=== PATIENT | female | born 1990 | race Caucasian/White ===

== ENCOUNTER → 2023-09-11 09:51 | Outpatient (REF) | payer OTHER, SELFPAY | LOC: HWRCS 09:51 | PROVIDERS: ATTENDING PHYSICIAN Internal Medicine Cardiovascular Disease | DX: R07.89 Other chest pain (principal); Z86.79 Personal history of other diseases of the circulatory system; Z82.49 Family history of ischemic heart disease and other diseases of the circulatory system | CPT/HCPCS: 93306 ==

== ENCOUNTER 2023-12-28 15:20 | Inpatient (IN) | payer OTHER, SELFPAY ==
[2023-12-28] VITALS (9 sets, daily range): BP systolic 98–117; BP diastolic 61–81; BMI 27.4; BMI 28.8
[2023-12-28 11:29] LABS: Glucose - Point of Care 555 mg/dl (70-99)
--- NOTE | 2023-12-28 11:31 | ED.GENMED ---
History of Present Illness
General
Chief Complaint: Blood Sugar Problem
Source: patient
Exam Limitations: none
Time Seen by Provider: 12/28/23 11:31
Nursing documentation reviewed up to this point in time: agreed with
History of Present Illness
History of Present Illness:
This is a 33-year-old female with a history of type 1 diabetes, tobacco use disorder, PTSD, anxiety, bipolar disorder presenting to the emergency department today with concerns of blood sugar running high recently. Patient is manage on Dexcom
monitor and insulin pump. Patient states that a week ago, her continuous glucose monitor started beeping before it was time for change and it started malfunctioning. Patient states that she tried to get this refilled to get a new monitor but she
only gets a certain refills of her month and would not allow her to get a new one. Patient states that she is legally blind so she could not manage her sugars with fingerstick monitor but noticed that she started to have a lot of nausea and
vomiting and feeling in general foggy and yet her sugar was high. Denies any abdominal pain. She denies any fevers or chills, chest pain, shortness of breath. Patient also complains of left foot pain. Patient states that she has pretty bad
neuropathic pain in her feet with her diabetes and recently started to have swelling and increasing pain in her left foot is concerned she may have have broken metatarsal.
Past History
Past History
ED Past Medical History: IDDM, Psychiatric (Depression, anxiety, bipolar disorder, PTSD) and Other (Intestinal malrotation/Heterotaxy syndrome. Pancreatitis, Heroin OD, Ulcers Nephrotic kidneys,)
ED Past Surgical History: Gynecological, Orthopedic, Tonsilectomy (adnoids) and Other (hand surgery, tubes in ears, Ovarian cyst removed)
Social History
Tobacco: Smoker
Alcohol: Other (Reports no alcohol x 64 days)
Drug: IVDA
Personal: Single
Living: with family
Employment: Employed (home health aide)
Family History
Family History: Diabetes
Review of Systems
Review of Systems
All Other Systems: ROS reviewed and negative except as documented in HPI and ROS
Phy Exam
Physical Exam
Physical Exam:
General: Patient is well appearing and in no acute distress; non-toxic
Skin: Warm and dry, no rashes or lesions
Head: Normocephalic, atraumatic
Eyes: Sclera non-icteric. EOMs intact. PERRLA.
Cardiac: Regular rate and rhythm, no murmurs
Peripheral Vascular: No lower extremity swelling or edema. 2+ dorsalis pedis pulse bilaterally
Pulm: Normal respiratory effort
Abdomen: No abdominal tenderness
Musculoskeletal: Severe pain with light touch of bilateral feet. Swelling seen over the left first metatarsal. No obvious deformities.
Neuro: CN II-XII intact, no focal neurologic deficits.
Psychiatric: Appropriate mood and affect.
Course
Orders/Labs/Results
Orders:
Orders
12/28/23 11:44
Urinalysis Reflex To Culture Urgent
12/28/23 11:45
0.9% Sodium Chloride 1000 ml [Nss] 1,000 ml IV BOLUS
12/28/23 11:52
B-Hydroxybutyrate Urgent
Comment: ADD ON
Complete Blood Count/With Diff Urgent
Comprehensive Metabolic Panel Urgent
Magnesium Urgent
Comment: ADD ON
12/28/23 12:14
CR Foot - Left Min 3 Views Urgent
Reason For Exam: left foot swelling and pain
12/28/23 12:15
Add On- LAB Urgent
Tests Added?: B-hydroxybutyrate
12/28/23 12:20
Add On- LAB Urgent
Tests Added?: magnesium
12/28/23 13:28
Potassium Chloride [KCl] 20 meq PO NOW STA
12/28/23 13:42
Potassium Chloride [KCl] 20 meq PO NOW STA
12/28/23 13:53
Potassium Chloride [KCl] 40 meq 0.9% Sodium Chloride 250 ml [Nss] 250 ml IV NOW
12/28/23 14:10
Potassium Chloride 10% Elixir [KCl Elixir] 20 meq PO NOW STA
12/28/23 14:47
Admit/Transfer Patient As Directed
Co-Sign Provider:
Level of Care: Inpatient admission
Assign to:: Telemetry
Physician / Group: Clement
Diagnosis: Hyperglycemia; Hypokalemia
Reason for Telemetry: Arrhythmia
Date to Stop Telemetry: 12/31/23
Time to Stop Telemetry: 11:00
Reason for Hospitalization: IVFs, glucose control, potassium replacement
Expected length of stay greater than two midnights?: Yes
ELOS- Estimated Length of Stay in days: 3
I certify the patient meets the requirements for IP care: Yes
12/28/23 14:49
Code Status As Directed
Resuscitation Status: Full Code
12/28/23 15:00
Add On- LAB Routine
Comments:: Please add A1C to am labs. Thank you
Tests Added?: A1C
12/28/23 16:00
BMP [Basic Metabolic Panel] Urgent
12/31/23 11:00
DC Protocol for Telemetry ONCE
Abnormal Lab Results
12/28/23 12/28/23
11:27 11:52
RBC 3.94 L 10^6/uL
(4.20-5.40)
Hgb 11.4 L g/dL
(12.0-16.0)
Hct 31.4 L %
(37.0-47.0)
MCV 79.7 L fL
(81.0-99.0)
Plt Count 459 H 10^3/uL
(130-400)
Sodium 125 L mmol/L
(135-145)
Potassium 3.2 L mmol/L
(3.5-5.1)
Chloride 78 L mmol/L
(98-107)
Carbon Dioxide 34 H mmol/L
(22-30)
BUN 58 H mg/dl
(7-17)
Creatinine 1.6 H mg/dL
(0.6-1.0)
Glucose 563 H* mg/dl
(70-99)
Magnesium 2.8 H mg/dl
(1.6-2.3)
Alkaline Phosphatase 204 H U/L
(38-126)
POC Glucose 555 H* mg/dl
(70-99)
12/28/23 11:52
Vital Signs
Initial and Last Documented VS:
Initial Vital Signs
Temp Pulse Resp BP Pulse Ox
98.1 F 91 18 108/65 98
12/28/23 11:25 12/28/23 11:25 12/28/23 11:25 12/28/23 11:25 12/28/23 11:25
Last Documented Vital Signs
Temp Pulse Resp BP Pulse Ox
98.1 F 74 14 102/67 99
12/28/23 11:25 12/28/23 15:00 12/28/23 15:00 12/28/23 15:00 12/28/23 15:00
MDM/Problems Addressed
Differential Diagnosis Includes:
ddx include DKA, hyperglycemia, gastroenteritis, metatarsal fracture
MDM/Problems Addressed:
Hyperglycemia:
This is a 33-year-old female with a history of type 1 diabetes, tobacco use disorder, PTSD, anxiety, bipolar disorder presenting to the emergency department today with concerns of blood sugar running high recently. Patient is manage on DexIP Ghoster
monitor and insulin pump. Patient states that a week ago, her continuous glucose monitor started beeping before it was time for change and it started malfunctioning. She is unable to use a fingerstick monitor because she is legally blind. Her
sugar today is 555, however there is no evidence of acidosis or DKA. Her potassium is 3.2. Patient was given IV fluids. Because of her low potassium, IV potassium and oral potassium was started. Did not start insulin here in the ER because of
need for potassium,. Due to the fact that this patient does not have the ability to manage her blood sugars well, has significant uncontrolled diabetic neuropathy and ambulatory dysfunction, will admit for further management and care
Chronic conditions affecting care:
type 1 diabetes, migraines anxiety, depression, diabetic neuropathy
Acute Exacerbation and/or Progression of Chronic Illness:
type 1 diabetes, migraines anxiety, depression, diabetic neuropathy
*Pulse Oximetry
Patient hypoxic: no
*Critical Care Note
Total Time (30-74mins, 75-104mins- exclusive of procedures): Not Applicable
Data Reviewed
Review of Other/Old Records Reveals: Records and Discharge Summary (Reviewed discharge summary from 05/22/2023)
Source: patient and records
Patient Management
Escalation/DeEscalation of care consider admission/obs:
Admission indicated. I discussed this case with my attending Dr. Holcomb who is in agreement with plan.
ED Attending Note
-
Portions of this chart may have been created with voice recognition software.� Occasional wrong word or��sound alike� substitutions may have occurred due to the inherent limitations of voice recognition software.
Discharge Plan
Departure
Patient Disposition: Admit
Date of Disposition: 12/28/23
Time of Disposition: 13:55
Admit to: Med/Surg
Presentation/result/management discussed w/ accepting MD/DO: Hospitalist
Patient with high blood pressure during this ER visit?: Yes
Condition: Fair
Discharge Problem:
Hyperglycemia, Ambulatory dysfunction
Prescriptions:
No Action
losartan 100 mg Tablet
100 mg PO DAILY
Hold Instructions: Resume on 05/29/23. till seen by your PCP
rosuvastatin 20 mg Tablet
20 mg PO QPM
quetiapine 25 mg Tablet
25 mg PO HS
trazodone 50 mg Tablet
150 mg PO HS
metolazone 5 mg Tablet
5 mg PO TUTH
cyanocobalamin (vitamin B-12) 1,000 mcg Tablet
1,000 mcg PO DAILY
omeprazole 40 mg Capsule,Delayed Release(Dr/Ec)
40 mg PO BID
prednisolone acetate 1 % Drops,Suspension
1 drp RIGHT EYE DAILYPRN PRN (Reason: inflammation)
gabapentin 100 mg Capsule
100 mg PO TID
atropine 1 % Drops
2 drp RIGHT EYE DAILYPRN PRN (Reason: dryness)
insulin glargine [Lantus Solostar U-100 Insulin] 100 unit/mL (3 mL) Insulin Pen
9 unit SC TIDPRN PRN (Reason: diabetes)
Creon 36,000-114,000- 180,000 unit Capsule,Delayed Release(Dr/Ec)
1 cap PO AC
Blink Tears 0.25 % Drops
1 drp ophthalmic (eye) QID
Rx Instructions:
right eye
Patient's Own Insulin Pump
0 sliding scale dose SC .CONTINUOUS
Rx Instructions:
patient using insulin lispro
bumetanide 2 MG tablet
2 mg PO BID
Referrals:
Malvin Savage MD [Family Provider] -
Interventions
Interventions:
*Risk Screen - Suicide Last Done: 12/28/23 11:47
*General Assessment Last Done: 12/28/23 11:47
*Neglect/Abuse Screening Last Done: 12/28/23 11:47
ED- Fall Risk Assessment Last Done: 12/28/23 11:47
*ED COVID-19 Vaccine History Last Done: 12/28/23 11:25
ED- Neurological Assessment Last Done: 12/28/23 11:47
Discharge Date and Time
Print Language: PUERTO RICAN
[2023-12-28] MEDS: NSS 1000 IV (11:54)
--- NOTE | 2023-12-28 12:06 | PHANOTE ---
med rec gianna- patient states she picked up enoxaparin injection on 12/12/23, 21 doses, but has not used them.
[2023-12-28 12:09] LABS: % Basophils 1.1 % (0-2); % Eosinophils 3.7 % (0-6); % Immature Granulocytes 0.1 % (0-0.5); % Monocytes 6.8 % (1.7-9.3); % Neutrophils 59.3 % (42.2-75.2); Absolute Basophils 0.1 10^3/uL (0-0.2); Absolute Eosinophils 0.3 10^3/uL (0-0.7); Absolute Lymphocytes 2.2 10^3/uL (1.2-3.4); Absolute Monocytes 0.5 10^3/uL (0.1-0.6); Absolute Neutrophils 4.5 10^3/uL (1.4-6.5); Hematocrit 31.4 % (37.0-47.0); Hemoglobin 11.4 g/dL (12.0-16.0); Mean Corp Hgb Conc. 36.3 g/dL (33.0-37.0); Mean Corpuscular Hgb 28.9 pg (27.0-31.0); Mean Corpuscular Volume 79.7 fL (81.0-99.0); Mean Platelet Volume 10.4 fL (7.4-10.4); Nucleated Red Blood Cells % 0 %; Platelet Count 459 10^3/uL (130-400); Red Blood Cell Count 3.94 10^6/uL (4.20-5.40); Red Cell Dist. Width 12.9 % (11.5-14.5); White Blood Cell Count 7.5 10^3/uL (4.8-10.8)
[2023-12-28 12:18] LABS: ALT (SGPT) 25 U/L (0-35); AST (SGOT) 25 U/L (14-36); Albumin 4.3 g/dl (3.5-5.0); Alkaline Phosphatase 204 U/L (38-126); Blood Urea Nitrogen 58 mg/dl (7-17); Calcium 9.4 mg/dl (8.4-10.2); Carbon Dioxide 34 mmol/L (22-30); Chloride 78 mmol/L (98-107); Estimated Creatinine Clearance 46 ml/min; Glucose 563 mg/dl (70-99); Potassium 3.2 mmol/L (3.5-5.1); Sodium 125 mmol/L (135-145); Total Bilirubin 0.4 mg/dl (0.2-1.3); Total Protein 7.5 g/dl (6.3-8.2); eGFR 43.67
[2023-12-28 12:56] LABS: B-Hydroxybutyrate 0.25 mmol/L (0.02-0.27); Magnesium 2.8 mg/dl (1.6-2.3)
[2023-12-28] MEDS: KCL 20 MEQ PO ×2 (13:42→14:23)
--- NOTE | 2023-12-28 13:58 | HPS.HSE ---
Family Physician
-
Family Physician: Malvin Savage
Chief Complaint
-
Elevated Blood Sugars
History of Present Illness
This is a 33 year old female with past medical history of diabetes mellitus type 1, legal blindness, hypertension, and CKD presents to the emergency department with elevated blood sugar. The patient reports she has been having symptoms of fatigue,
nausea, and vomiting the past week as she has tried to control her glucose levels. She reports these are typical symptoms for her when her glucose is not controlled. The patient notes her glucose monitor is malfunctioning so it is not communicating
with her pump to release the insulin she needs to keep her glucose numbers down, prompting her to present to the emergency department today. She admits to using Lantus at home to try and compensate for the lack of insulin release from the pump
without relief of symptoms. She reports she monitors her blood sugar based on her symptoms since she is legally blind and cannot do fingerstick glucose monitoring. She reports she contacted her pharmacy to obtain another glucose monitor but was told
insurance will not cover another sensor at this time. She denies diarrhea, fever, chills, and sweats.
Medical History
Past Medical History
Past Medical History: Reports Other
Additional Past Medical History:
Diabetes Mellitus, Type I
Diabetic Neuropathy
CKD Stage III
Essential Hypertension
Hyperlipidemia
Anxiety / Depression / Bipolar Disorder / PTSD
Chronic Pancreatitis
Intestinal Malrotation
Past Surgical History: Reports Other
Additional Past Surgical History:
Tonsillectomy
Ovarian Cyst Removal
Right and Surgery
Left Foot Surgery
Right Retinal Reattachment
Social History
Tobacco: Smoker
Alcohol: Occasional
Drug: Former User
Living: With Family
Family History
Family History: Other (Hypertrophic Cardiomyopathy and Diabetes Mellitus)
Allergies / Home Medications
Allergies reflects when Allergies were last updated in [employer].
Home Medications with original date entered in [employer]
Allergy/Medication List:
Allergies
Allergy/AdvReac Type Severity Reaction Status Date / Time
No Known Allergies Allergy Verified 12/28/23 11:28
Home Medications
losartan 100 mg tablet 100 mg PO DAILY Blood Pressure 05/21/23
rosuvastatin 20 mg tablet 20 mg PO QPM High Cholesterol 05/21/23
Patient's Own Insulin Pump 0 sliding scale dose SC .CONTINUOUS 12/28/23
atropine 1 % eye drops 2 drp RIGHT EYE DAILYPRN PRN dryness 12/28/23
bumetanide 2 mg tablet 2 mg PO BID Fluid retention/Swelling 12/28/23
cyanocobalamin (vitamin B-12) 1,000 mcg tablet 1,000 mcg PO DAILY 12/28/23
gabapentin 100 mg capsule 100 mg PO TID 12/28/23
insulin glargine 100 unit/mL (3 mL) subcutaneous pen (Lantus Solostar U-100 Insulin) 9 unit SC TIDPRN PRN diabetes 12/28/23
[id number]-bkqjcfu 36,000-114,000-180,000 unit capsule,delay rel (Creon) 1 cap PO AC 12/28/23
metolazone 5 mg tablet 5 mg PO TUTH 12/28/23
omeprazole 40 mg capsule,delayed release 40 mg PO BID 12/28/23
polyethylene glycol 400 0.25 % eye drops (Blink Tears) 1 drp ophthalmic (eye) QID 12/28/23
prednisolone acetate 1 % eye drops,suspension 1 drp RIGHT EYE DAILYPRN PRN inflammation 12/28/23
quetiapine 25 mg tablet 25 mg PO HS 12/28/23
trazodone 50 mg tablet 150 mg PO HS 12/28/23
Review of Systems
-
A 12 point ROS was completed and negative except as noted: Yes
Constitutional: Denies Fever or Chills
Respiratory: Denies Cough or Trouble Breathing
Cardiac: Denies Chest Pain or Palpitations
Abdomen/GI: Reports Abdominal Pain
Physical Exam
Vital Signs
Vital Signs
Temp Pulse Resp BP Pulse Ox
98.1 F 75 11 101/77 97
12/28/23 11:25 12/28/23 13:15 12/28/23 13:15 12/28/23 13:00 12/28/23 13:15
Physical Exam
General: Comfortable and Conversant
HEENT: Anicteric and Moist mucous membranes
Respiratory: Clear and Non Labored Respirations
Cardiac: S1/S2 and Regular Rhythm
GI: Soft and Non Tender
Rectal: Deferred by Provider
Skin: Warm and Dry
Neuro: Awake, Alert, Oriented and Nonfocal/grossly intact
Laboratory Results
-
12/28/23 11:52
12/28/23 11:52
Laboratory Results
Total Bilirubin 0.4 mg/dl (0.2-1.3) 12/28/23 11:52
AST 25 U/L (14-36) 12/28/23 11:52
ALT 25 U/L (0-35) 12/28/23 11:52
Alkaline Phosphatase 204 U/L (38-126) H 12/28/23 11:52
Data Reviewed
-
Lab Data: Labs Reviewed by me
Impression/Plan
-
Hyperglycemia secondary to malfunctioning continuous glucose monitoring
-Consult Degreasing Solution Reclaimer for insulin recommendation
-Check HbgA1c
Hypokalemia
-Continue potassium replacement
-Hold diuretics
-Recheck BMP later this afternoon
Hyponatremia, mild
-Corrected sodium 132
-Recheck labs in AM
Recent Bilateral Toe Fractures
-Await official report on foot x-ray
-Continue use of walking boots
-Consult PT/OT
-Follow-up with podiatry/surgery as outpatient
CKD Stage III
-Creatinine at baseline
-Diuretics currently on hold
-Monitor Is&Os and Daily Weigths
Essential Hypertension
-Continue losartan
Hyperlipidemia
-Continue rosuvastatin
Peripheral Neuropathy
-Continue gabapentin
Chronic Pancreatitis
-Continue Creon
Anxiety/Depression/Bipolar/PTSD
-Continue Seroquel and trazodone
DVT proph: SC Heparin
Code Status: Full Code
[2023-12-28] MEDS: KCL 270 MEQ IV (14:24)
--- NOTE | 2023-12-28 14:56 | PN.DE.MGMTRT ---
Insulin Management
- -
12/28/2023: Diabetes Management Consult
33 year old female admitted with Hyperglycemia. Glucose on admission was 563, Pt reports having sx of fatigue, N/V. PMH:- Anxiety, Bipolar, legally blind, HTN, CKD, Substance abuse disorder, Gastroparesis and T1DM. Pt is well know to me from prior
admissions for DKA.
Pt reports that she was transitioned to insulin pump from insulin injections in Aug 2023 and has been doing well until about a week a go when her CGM sensor started malfunctioning and not communicating with her Omni Pod insulin pump, therefore not
getting the appropriate dose of insulin. She tried using Lantus at onset of her sx but had no improvement. States she contacted her pharmacy to obtain another Sensor but was told that it was too soon to refill. She continues to report that she is
legally blind in the right eye due to a detached retina as a result of severe proliferative retinopathy
Pt sleeping but easily awakens to name call, offers no complaints and is able to discuss diabetes mgt.
States that she does not know the exact details of her insulin pump settings but recalls that her insulin requirements prior to getting on the insulin pump were NovoLog 6 units AC with 22 units Lantus @ HS. She routinely sees [facility] at [facility].
Last A1C on 05/20/23 was 10.4%
Glucose on admission was 563 (V), Na+125, Bicarb 34, Cl-74, K+ 3.2--> replacement with IVF. Repeat BMP pending at 1600
Will start Lantus 20 units @ HS and NovoLog 6 units AC with low corrective insulin as well as 1800 ADA diet. Will update A1C - have added to AM labs.
I spoke to Ani and instructed her to call Dexcom and request for sensor. attempted o call her Endo's office and was unsuccessful, will make another attempt tomorrow. Also encouraged Ani to use voice command on her Iphone to call Dexcom
customer service since she is legally blind, when in need of troubleshooting her CGM.
Pt will temporarily require insulin injections via pen for management as she awaits for new sensor.
Diabetes History
- -
Type of Diabetes: 1
Pre-Admission Diabetes Regimen
12/28/23
11:52
Creatinine 1.6 H
Insulin Pump Settings
IP Diabetes Regimen
12/28/23 12/28/23
11:27 11:52
Glucose 563 H*
POC Glucose 555 H*
Patient Education
--- NOTE | 2023-12-28 15:40 | CON.ORTHO ---
Addendum entered and electronically signed by Lindsey Khan PA-C 12/29/23 17:21:
Patient with extensive fractures in her right midfoot as well including fracture of the base of her 2nd-4th metatarsals. Her hgb A1c is 11.5. She will likely require eventual surgical intervention for both of her feet, but this will not happen until
her diabetes is under better control. Still plan for outpatient follow up to discuss surgical intervention further. Continue with immobilization in bilateral CAM boots when ambulating. Given bilateral foot fractures, and need for immobilization,
this will make ambulating difficulty. She may bear weight as tolerated to both feet, but must utilize her CAM boots. She may wear these at rest for comfort as well.
Original Note:
Consultation
-
Date/Time Consultation Requested: 12/28/2023; time unknown
Date/Time Consultation Performed: 12/28/2023; 1530
Requesting Provider: Lina Baltazar
Performing Provider: Lindsey Khan PA-C for Dr. Gerardo Aquino
Reason for Consultation: Left foot pain
Consultation - Orthopedics
History
Ms. Montes is a 33 year old female with PMH significant for diabetes mellitus type 1 with bilateral diabetic neuropathy, legal blindness, hypertension, and CKD seen today for her left foot. She reports about 2-3 weeks ago her legs started to 'give
out on her' She is not able to report any falls or other specific injuries. She was seen initially at [facility] where x-rays were performed of both of her feet. She reports they told her she had seven fractured bones in her feet. She was
placed in bilateral tall CAM boots and instructed to follow up outpatient. She reports she has been weight bearing in her CAM boots, but felt a new 'crunch' recently, and experienced increased pain in her foot. She presented to today due to
elevated blood sugars. She does not recall what her last hemoglobin A1c was.
Allergies / Home Medications
Allergy/AdvReac Type Severity Reaction Status Date / Time
No Known Allergies Allergy Verified 12/28/23 11:28
�Medication �Instructions �Recorded
losartan 100 mg tablet 100 mg PO DAILY Blood Pressure 05/21/23
rosuvastatin 20 mg tablet 20 mg PO QPM High Cholesterol 05/21/23
Patient's Own Insulin Pump 0 sliding scale dose SC .CONTINUOUS 12/28/23
atropine 1 % eye drops 2 drp RIGHT EYE DAILYPRN PRN 12/28/23
dryness
bumetanide 2 mg tablet 2 mg PO BID Fluid 12/28/23
retention/Swelling
cyanocobalamin (vitamin B-12) 1,000 mcg PO DAILY 12/28/23
1,000 mcg tablet
gabapentin 100 mg capsule 100 mg PO TID 12/28/23
insulin glargine 100 unit/mL (3 9 unit SC TIDPRN PRN diabetes 12/28/23
mL) subcutaneous pen (Lantus
Solostar U-100 Insulin)
cfhvph-eahmsaxr-kgiurtv 1 cap PO AC 12/28/23
36,000-114,000-180,000 unit
capsule,delay rel (Creon)
metolazone 5 mg tablet 5 mg PO TUTH 12/28/23
omeprazole 40 mg capsule,delayed 40 mg PO BID 12/28/23
release
polyethylene glycol 400 0.25 % eye 1 drp ophthalmic (eye) QID 12/28/23
drops (Blink Tears)
prednisolone acetate 1 % eye 1 drp RIGHT EYE DAILYPRN PRN 12/28/23
drops,suspension inflammation
quetiapine 25 mg tablet 25 mg PO HS 12/28/23
trazodone 50 mg tablet 150 mg PO HS 12/28/23
Vital Signs / Lab Results
Temp Pulse Resp BP Pulse Ox
98.1 F 74 14 102/67 99
12/28/23 11:25 12/28/23 15:00 12/28/23 15:00 12/28/23 15:00 12/28/23 15:00
12/28/23 11:52
XR Left Foot IMPRESSION:
Fractures of the base of the left first, second, third and fourth metatarsals, as noted above.
Directed exam of the left foot reveals mild generalized edema throughout the foot. No erythema, ecchymosis or lesions. Tenderness to palpation over the base of the first-fourth metatarsals. Patient able to wiggle toes. Sensitivity to light touch
generally throughout the foot. Palpable pt and dp pulses.
Assessment / Plan
Fractures of left first through fourth metatarsals
--Ani's x-rays were reviewed with her today which reveal fractures of her first through fourth metatarsals. We discussed that this will require a midfoot fusion at some point in the future. The operation does not need to be performed emergently,
and will be determined by her blood sugar control. Hemoglobin A1c was ordered for tomorrow AM. Patient counseled on strict blood glucose control. At this point, I would recommend continued immobilization in her CAM boot. She should be non-weight
bearing to her left lower extremity. She may follow up on an outpatient basis to discuss surgical intervention further. Orthopedics will continue to follow along while patient admitted.
Right foot pain/reports h/o recent fracture
--XR right foot ordered to assess for fractures.
--- NOTE | 2023-12-28 15:47 | W.PN.UPDATE ---
Update Note
Progress Note Update
This note serves as an addendum to the H&P by Felisa Banda PA-C, on December 28, 2023.
History of Presenting Illness
33 year old female with past medical history of diabetes mellitus type 1, legal blindness, hypertension, and CKD presented to the emergency department with elevated blood sugars. The patient reports she vomited in the past 24 hours due to
hyperglycemia. She reports these are typical symptoms for her when her glucose is not controlled. The patient notes her glucose monitor is malfunctioning so it is not communicating with her pump to release the insulin she needs to keep her glucose
numbers down, prompting her to present to the emergency department today. She admitted to using Lantus at home to try and compensate for the lack of insulin release from the pump without relief of symptoms. She reports she monitors her blood sugar
based on her symptoms since she is legally blind and cannot do fingerstick glucose monitoring. She reports she contacted her pharmacy to obtain another glucose monitor but was told insurance will not cover another sensor at this time. She denied
diarrhea, fever, chills, or confusion.
Physical Exam
General: Comfortable and Conversant
HEENT: Anicteric and Moist mucous membranes
Respiratory: Clear and Non Labored Respirations
Cardiac: S1/S2 and Regular Rhythm
GI: Soft and Non Tender. Positive bowel sounds.
Skin: Warm and Dry
Neuro: Awake, Alert, Oriented and Nonfocal/grossly intact
Assessment/Plan
Hyperglycemia secondary to malfunctioning continuous glucose monitoring
-Not in DKA or HHS
-Insulin Sliding Scale ACHS
-IV fluids with potassium
-Consulted Inspecting Engineer for insulin recommendation, they will see patient today
-Check HbgA1c
Hypokalemia
-Continue potassium replacement
-Hold diuretics
-Recheck BMP later this afternoon
Hyponatremia, mild
-Corrected sodium 132
-Recheck labs in AM/this afternoon
Recent Bilateral Toe Fractures
-Was in [facility] for 2 weeks recently -- much of time was there waiting for the boots and insurance approval
-Await official report on foot x-ray
-Continue use of walking boots
-Consult PT/OT
-Follow-up with podiatry/surgery as outpatient
CKD Stage III
-Creatinine at baseline
-Diuretics currently on hold
-Monitor Is&Os and Daily Weigths
Essential Hypertension
-Continue losartan
Hyperlipidemia
-Continue rosuvastatin
Peripheral Neuropathy
-Continue gabapentin
Chronic Pancreatitis
-Continue Creon
Anxiety/Depression/Bipolar/PTSD
-Continue Seroquel and trazodone
DVT proph: SC Heparin
Code Status: Full Code
[2023-12-28 16:22] LABS: Glucose - Point of Care 380 mg/dl (70-99)
[2023-12-28 16:51] LABS: Blood Urea Nitrogen 55 mg/dl (7-17); Carbon Dioxide 31 mmol/L (22-30); Chloride 86 mmol/L (98-107); Estimated Creatinine Clearance 56 ml/min; Glucose 346 mg/dl (70-99); Potassium 3.7 mmol/L (3.5-5.1); Sodium 128 mmol/L (135-145); eGFR 56.03
[2023-12-28] MEDS: ZENPEP DELAYED RELEASE CAPSULE 1 CAPSULE PO (17:26)
[2023-12-28] MEDS: CRESTOR 20 MG PO (17:26)
[2023-12-28] MEDS: NOVOLOG FLEXPEN 6 UNITS SC (17:27)
[2023-12-28] MEDS: NEURONTIN 100 MG PO ×2 (17:27→21:01)
[2023-12-28] MEDS: NOVOLOG FLEXPEN-MODERATE RESISTANCE 9 UNITS SC (17:28)
--- NOTE | 2023-12-28 19:17 | PTCARENOTE ---
Received pt from ED.Pt awake, alert and oriented x3. Pt c/o discomfort in B/L feet, tolerable at this time. Pt is ordered NWB per MD, based on xray results. Pt does have boots that were given to her at [facility]. She is refusing to use bed
deleon or BSC. Pt is insisting on walking to the bathroom and refusing her boots. Pt instructed on reasoning for NWB and probability that her fractures could get worse, increased pain, slow healing, pt verbalized understanding, still refusing, Md
aware. Also in doing suicide risk assessment pt has attempted suicide in the last month. Pt has no active plan at this time. Spoke with MD, 1:1 initiated for overnight, Psych will see pt in am and determine continued need for 1:1. Initially pt
refusing 1:1 but after taking time and discussing plan of care, pt agreeable. Pt unhappy with Diabetic Diet, refusing to eat. Spoke with Dietary pt able to order meal she wanted with minor adjustments, Insulin coverage given for blood sugar of 380
per orders. Pt oriented to room, instructed to ring for assistance to bathroom, verbalized understanding and compliant this shift. Pt call osullivan within reach, plan of care ongoing.
--- NOTE | 2023-12-28 19:50 | PTCARENOTE ---
Addendum entered by Janelle Valle RN 12/28/23 20:15:
'Pt call osullivan within reach', no bed alarm in place pt has been ringing appropriately to use bathroom.
Original Note:
Went into see patient she is now adamantly refusing 1:1, saying ' i will walk out' Pt is insistent she has no plan or thoughts of suicide at this time. Psych and Hospitalist made aware along with house provider. Pt bed alarm in place. Plan of care
continues.
[2023-12-28] MEDS: PROTONIX 40 MG PO (20:13)
[2023-12-28] MEDS: SEROQUEL 25 MG PO (20:22)
[2023-12-28] MEDS: DESYREL 150 MG PO (20:31)
[2023-12-28 20:55] LABS: Glucose - Point of Care 160 mg/dl (70-99)
[2023-12-28] MEDS: LANTUS 0.200000000000000011 UNITS SC (21:01)
--- NOTE | 2023-12-28 21:23 | PTCARENOTE ---
Patient due for Urine Sample. PCT obtained sample, patient made staff aware she just started her period. RN called lab, lab said we can still send the sample down. BUTTON TUFTING MACHINE OPERATOR aware.
[2023-12-28 22:04] LABS: Urine Albumin 2+ (Neg - Trace); Urine Bilirubin Negative (Negative); Urine Character Clear (Clear); Urine Color Yellow; Urine Glucose 3+ (Negative); Urine Ketone Negative (Negative); Urine Leukocyte Trace (Negative); Urine Nitrite Negative (Negative); Urine Occult Blood 4+ (Negative); Urine Urobilinogen Negative (Neg - 1+)
[2023-12-28 22:11] LABS: Urine Squamous Cell >30 /LPF (Few)
[2023-12-28 22:15] LABS: Urine Bacteria Many (Negative); Urine Red Blood Cell 0-2 /HPF (0-2); Urine White Cell 16-20 /HPF (0-5)
--- NOTE | 2023-12-28 22:40 | PTCARENOTE ---
Patient asked staff if we could close the door for privacy because she doesn't feel safe and cannot sleep with the noises outside the room. Pt given options to either close the door with a med sitter or leave the door open due to safety issues. LOAN AND CREDIT MANAGER
Ana Rosa Michael aware. LOAN AND CREDIT MANAGER came to the floor to speak with the patient. RN and LOAN AND CREDIT MANAGER spoke with patient about her options because safety is the priority. Pt very upset stating she has no suicidal ideations and will call if she needs help. Took her heart
monitor off and wrist band. Stated all she wants to do is sleep and she will use call osullivan if she needs to use the bathroom. She will keep the light on during the night. Stated that she is in the hospital because she wants to seek help for her
health. Patient wants to be 'treated like a human being' and feels as if she is being 'degraded'. Patient stated she does not have a ride home if she were to leave AMA. LOAN AND CREDIT MANAGER decided to allow the patient close the door. AAOx3. Heart monitor and wrist
band reapplied. Room light on. Call osullivan is within reach.
[2023-12-29 03:14] VITALS: BP 101/61
[2023-12-29 05:55] LABS: Hematocrit 30.5 % (37.0-47.0); Hemoglobin 10.4 g/dL (12.0-16.0); Mean Corp Hgb Conc. 34.1 g/dL (33.0-37.0); Mean Corpuscular Hgb 28.7 pg (27.0-31.0); Mean Corpuscular Volume 84.3 fL (81.0-99.0); Mean Platelet Volume 10.5 fL (7.4-10.4); Platelet Count 408 10^3/uL (130-400); Red Blood Cell Count 3.62 10^6/uL (4.20-5.40); Red Cell Dist. Width 13.1 % (11.5-14.5); White Blood Cell Count 8.6 10^3/uL (4.8-10.8)
[2023-12-29 06:12] LABS: Blood Urea Nitrogen 51 mg/dl (7-17); Calcium 9.1 mg/dl (8.4-10.2); Carbon Dioxide 31 mmol/L (22-30); Chloride 93 mmol/L (98-107); Estimated Creatinine Clearance 53 ml/min; Glucose 171 mg/dl (70-99); Potassium 3.2 mmol/L (3.5-5.1); Sodium 135 mmol/L (135-145); eGFR 51.26
[2023-12-29 07:07] LABS: Glucose - Point of Care 192 mg/dl (70-99)
[2023-12-29 07:15] VITALS: BP 101/60
--- NOTE | 2023-12-29 08:19 | PN.DE.MGMTRT ---
Insulin Management
- -
12/29/2023: Diabetes Management F/U:
33 year old female admitted with Hyperglycemia. Glucose on admission was 563, Pt reports having sx of fatigue, N/V. PMH:- Anxiety, Bipolar, legally blind, HTN, CKD, Substance abuse disorder, Gastroparesis and T1DM. Pt is well know to me from prior
admissions for DKA.
Pt reports that she was transitioned to insulin pump from insulin injections in Aug 2023 and has been doing well until about a week a go when her CGM sensor started malfunctioning and not communicating with her Omni Pod insulin pump, therefore not
getting the appropriate dose of insulin. She tried using Lantus at onset of her sx but had no improvement. States she contacted her pharmacy to obtain another Sensor but was told that it was too soon to refill. She continues to report that she is
legally blind in the right eye due to a detached retina as a result of severe proliferative retinopathy.
States that she does not know the exact details of her insulin pump settings but recalls that her insulin requirements prior to getting on the insulin pump were NovoLog 6 units AC with 22 units Lantus @ HS. She routinely sees Endo Dr. River at [facility].
Last A1C on 05/20/23 was 10.4%
Pt awake, alert, oriented, sitting up in bed, offers no complaints and is able to discuss diabetes mgt.
Glucose on admission was 563 (V), was started on SQ insulin. A1C still pending. Cr 1.4, eGFR 51.26
Glucose has improved, pre-dinner sugar was 380, down to 160 HS and fasting 171(V), 192 POC this AM.
Will increase Lantus to 22 units @ HS and NovoLog to 8 units AC with low corrective insulin as well as 1800 ADA diet.
Pt was instructed to call [email or web address] and request for sensor. Pt will temporarily use insulin injections via pen for management while she awaits for a new sensor.
States she is able to use insulin pens but has difficulty with glucose monitoring and that her boyfriend helps her to check it most of the time.
Pt can be discharged home on insulin injections, she is comfortable with self administration of insulin using pens and has a glucose monitor with supplies at home
Diabetes plan of care discussed with pt and Nurse
Diabetes History
- -
Type of Diabetes: 1
Pre-Admission Diabetes Regimen
12/28/23 12/28/23 12/29/23
11:52 16:23 05:29
Creatinine 1.6 H 1.3 H 1.4 H
Insulin Pump Settings
IP Diabetes Regimen
12/28/23 12/28/23 12/28/23
11:27 11:52 16:20
Glucose 563 H*
POC Glucose 555 H* 380 H
12/28/23 12/28/23 12/29/23
16:23 20:53 05:29
Glucose 346 H 171 H
POC Glucose 160 H
12/29/23
07:06
Glucose
POC Glucose 192 H
Meal type: Dinner
Amount consumed: 100%
Patient Education
[2023-12-29] MEDS: NOVOLOG FLEXPEN SC (09:01)
[2023-12-29] MEDS: LANTUS SC (09:01)
[2023-12-29] MEDS: PROTONIX 40 MG PO ×2 (09:02→20:55)
[2023-12-29] MEDS: NEURONTIN 100 MG PO ×3 (09:03→20:56)
[2023-12-29] MEDS: ZENPEP DELAYED RELEASE CAPSULE 1 CAPSULE PO ×3 (09:03→16:38)
[2023-12-29] MEDS: KCL 40 MEQ PO (09:09)
[2023-12-29] MEDS: NSS 1000 IV ×2 (09:10→21:05)
[2023-12-29] MEDS: NOVOLOG FLEXPEN 8 UNITS SC ×4 (09:11→21:42)
[2023-12-29] MEDS: NOVOLOG FLEXPEN-MODERATE RESISTANCE 1 UNITS SC (09:12)
[2023-12-29] MEDS: LANTUS 0.220000000000000001 UNITS SC ×2 (09:39→20:57)
[2023-12-29 10:07] LABS: Glycohemoglobin (HgbA1c) 11.5 % (4.0-5.6)
[2023-12-29 11:10] VITALS: BP 99/68
[2023-12-29 11:17] LABS: Glucose - Point of Care 205 mg/dl (70-99)
[2023-12-29] MEDS: NICODERM TRANSDERMAL 21 MG TRANSDERM (11:56)
[2023-12-29] MEDS: NOVOLOG FLEXPEN-MODERATE RESISTANCE 3 UNITS SC ×2 (11:57→16:39)
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
[2023-12-29] MEDS: MIRALAX 17 GRAMS PO (14:40)
[2023-12-29] MEDS: TYLENOL 650 MG PO (15:08)
[2023-12-29 15:18] VITALS: BP 116/77
[2023-12-29 16:40] LABS: Glucose - Point of Care 229 mg/dl (70-99)
--- NOTE | 2023-12-29 17:00 | CM ---
Addendum entered by Radha Rodriguez 12/29/23 17:21:
Physical therapy are recommending skilled placement options reviewed with patient and patient is agreeable to [facility] and [facility], patient will be less than 30 day admission.
Original Note:
marketing strategy manager reviewed patient's chart and patient is followed by ACT program, Ana ridley [phone] and Pete [phone] patient is independent with adl's and ambulation, patient resides at [facility], and plan will be to return to
[facility] when stable.
Per Xenia they can transport patient Monday-Monday
Please fax clinical to ACT FAX [phone]
Pharmacy [facility]
PCP: Dr. Savage
--- NOTE | 2023-12-29 17:10 | W.PN.HOSP.TC ---
Today's Communication/Plan
-
Potassium replacement
Appreciate psychiatry, orthopedics, and Diabetes EMT I/99
Assessment / Plan
Assessment / Plan
Physical Exam
General: Comfortable and Conversant
HEENT: Anicteric and Moist mucous membranes
Respiratory: Clear and Non Labored Respirations
Cardiac: S1/S2 and Regular Rhythm
GI: Soft and Non Tender. Positive bowel sounds.
Skin: Warm and Dry
Neuro: Awake, Alert, Oriented and Nonfocal/grossly intact
Assessment/Plan
Hyperglycemia secondary to malfunctioning continuous glucose monitoring - IMPROVED
-Not in DKA or HHS
-IV fluids
-Consulted Photo Engraver for insulin recommendation: Lantus to 22 units @ HS and NovoLog to 8 units AC with low corrective insulin as well as 1800 ADA diet.
-Will need to prescribe insulin injections on discharge, she has glucose monitor and supplies at home
-Check HbgA1c
Hypokalemia
-Continue potassium replacement
-Hold diuretics
-Recheck BMP in the AM
Hyponatremia - secondary to hyperglycemia
-Recheck morning labwork
Recent Bilateral Toe Fractures
-Was in [facility] for 2 weeks recently -- much of time was there waiting for the boots and insurance approval
-Official report on foot x-ray: Left Foot - Fractures of the base of the left first, second, third and fourth metatarsals; Right Foot - There are acute comminuted nondisplaced fractures of the proximal metaphyses of the third and fourth metatarsals,
fracture of the base of the second metatarsal and associated oblique fracture of the distal lateral aspect of the medial cuneiform with associated intra-articular extension at the tarsal metatarsal joints of the first and second digits.
-Continue use of walking boots, continue NWB to bilateral lower extremities
-Consult PT/OT
-Follow-up with podiatry/surgery as outpatient
CKD Stage 4
-Patient confirmed that she has CKD stage 4 from Diabetes Mellitus
-Creatinine at baseline
-Diuretics currently on hold
-Monitor Is&Os and Daily Weigths
Essential Hypertension
-Continue losartan
Hyperlipidemia
-Continue rosuvastatin
Peripheral Neuropathy
-Continue gabapentin
Diabetic Gastroparesis
Severe retinopathy with visual impairment
Chronic Pancreatitis
History of Calcific Pancreatitis
-Continue Creon
Anxiety/Depression/Bipolar/PTSD
Recent Suicide Attempt
Numerous Psychiatric Admissions
Opiate Use Disorder
-Continue Seroquel and trazodone
-Psychiatry consulted, recommendations appreciated
-No changes in current psychiatric medications
DVT proph: SC Heparin
Code Status: Full Code
Anticipated Discharge: 24 - 48 hours
Subjective/Interval History
-
Date of Service: December 29, 2023
Patient was seen and examined. She reported feeling better than yesterday. She denied any new significant symptoms.
Objective Data
-
Labs:
Laboratory Results
12/29/23 12/29/23
05:29 17:05
WBC 8.6
Hgb 10.4 L
Hct 30.5 L
Plt Count 408 H
Sodium 135 Pending
Potassium 3.2 L Pending
Chloride 93 L Pending
Carbon Dioxide 31 H Pending
BUN 51 H Pending
Creatinine 1.4 H Pending
Glucose 171 H Pending
Calcium 9.1 Pending
Vital Signs:
Vital Signs
Temp Pulse Resp BP Pulse Ox
98.1 F 81 16 116/77 98
12/29/23 15:18 12/29/23 15:18 12/29/23 15:18 12/29/23 15:18 12/29/23 15:18
I&O
12/28/23 12/29/23 12/30/23
06:59 06:59 06:59
Intake Total 240 / 240
Output Total 200 / 200
Balance 40 / 40
[2023-12-29 17:25] LABS: Blood Urea Nitrogen 50 mg/dl (7-17); Calcium 9.1 mg/dl (8.4-10.2); Carbon Dioxide 27 mmol/L (22-30); Chloride 95 mmol/L (98-107); Estimated Creatinine Clearance 53 ml/min; Glucose 227 mg/dl (70-99); Potassium 3.9 mmol/L (3.5-5.1); Sodium 132 mmol/L (135-145); eGFR 51.26
[2023-12-29] MEDS: CRESTOR 20 MG PO (17:51)
[2023-12-29 19:53] VITALS: BP 110/69
[2023-12-29] MEDS: SEROQUEL 25 MG PO (20:56)
[2023-12-29] MEDS: SENOKOT-S 1 TABLET PO (20:56)
[2023-12-29] MEDS: DESYREL 150 MG PO (20:56)
[2023-12-29 21:14] LABS: Glucose - Point of Care 304 mg/dl (70-99)
[2023-12-29 23:26] VITALS: BP 108/67
[2023-12-30] MEDS: MELATONIN 5 MG PO ×2 (00:04→22:51)
[2023-12-30 03:24] VITALS: BP 99/62
[2023-12-30 07:19] LABS: Glucose - Point of Care 232 mg/dl (70-99)
[2023-12-30 07:55] VITALS: BP 110/68
[2023-12-30] MEDS: NOVOLOG FLEXPEN-MODERATE RESISTANCE 3 UNITS SC (08:45)
[2023-12-30] MEDS: SENOKOT-S 1 TABLET PO ×2 (08:45→19:53)
[2023-12-30] MEDS: ZENPEP DELAYED RELEASE CAPSULE 1 CAPSULE PO ×3 (08:45→16:37)
[2023-12-30] MEDS: NEURONTIN 100 MG PO ×3 (08:45→22:34)
[2023-12-30] MEDS: PROTONIX 40 MG PO ×2 (08:45→19:53)
[2023-12-30] MEDS: NOVOLOG FLEXPEN 8 UNITS SC ×2 (08:46→16:37)
[2023-12-30] MEDS: MIRALAX 17 GRAMS PO (08:49)
[2023-12-30] MEDS: LANTUS 0.220000000000000001 UNITS SC ×2 (08:53→22:37)
[2023-12-30] MEDS: NICODERM TRANSDERMAL 21 MG TRANSDERM (08:54)
[2023-12-30] MEDS: TYLENOL 650 MG PO ×2 (09:04→22:33)
[2023-12-30 10:32] LABS: Hematocrit 28.9 % (37.0-47.0); Hemoglobin 9.6 g/dL (12.0-16.0); Mean Corp Hgb Conc. 33.2 g/dL (33.0-37.0); Mean Corpuscular Hgb 29.2 pg (27.0-31.0); Mean Corpuscular Volume 87.8 fL (81.0-99.0); Mean Platelet Volume 10.5 fL (7.4-10.4); Platelet Count 369 10^3/uL (130-400); Red Blood Cell Count 3.29 10^6/uL (4.20-5.40); Red Cell Dist. Width 13.7 % (11.5-14.5); White Blood Cell Count 7.6 10^3/uL (4.8-10.8)
[2023-12-30 10:44] LABS: Blood Urea Nitrogen 39 mg/dl (7-17); Carbon Dioxide 29 mmol/L (22-30); Chloride 103 mmol/L (98-107); Estimated Creatinine Clearance 68 ml/min; Glucose 196 mg/dl (70-99); Magnesium 2.9 mg/dl (1.6-2.3); Potassium 3.8 mmol/L (3.5-5.1); Sodium 139 mmol/L (135-145); eGFR > 60.00
[2023-12-30 11:10] VITALS: BP 117/75
[2023-12-30] MEDS: NSS 1000 IV (11:23)
--- NOTE | 2023-12-30 11:45 | W.PN.UPDATE ---
Update Note
Progress Note Update
Appreciate the primary team, continue treatment. Patient with extensive bilateral foot fractures. Unfortunately diabetes uncontrolled right now. Will eventually need bilateral midfoot fusions when diabetes under better control. may be WBAT in cam
boots. orthopedics to sign off for now. Follow-up outpatient
--- NOTE | 2023-12-30 12:08 | W.PN.UPDATE ---
Update Note
Progress Note Update
Psychiatry follow up for management recommendations given recent suicide attempt and extensive mental health history. Patient states she is doing ok today. She states her nighttime seroquel and trazodone were given to her too late last night and she
wants them at 6pm (current order indicates 6pm). She is also requesting PRN hydroxyzine for daytime anxiety stating it has helped her in the past. She states she reached out to her ACT team prescriber last week for an appointment via text but did
not get a response. I spoke to her ACT team prescriber by phone today who states that she is still under the care of ACT and that she is aware that appointments need to be made by calling [facility] not via text. He is happy to see her for follow up once
she is medically stable/discharged for continued medication management.
MSE- cooperative, lying in bed. anxious mood. denies suicidal ideations. Denies HI/AVH. Poor I/J. fully oriented
Plan- continue current medications. add hydroxyzine 50mg q6 hours PRN anxiety. follow up will be with ACT team including prescriber after discharge.
[2023-12-30 12:23] LABS: Glucose - Point of Care 102 mg/dl (70-99)
[2023-12-30] MEDS: NOVOLOG FLEXPEN-MODERATE RESISTANCE SC (12:32)
[2023-12-30] MEDS: NOVOLOG FLEXPEN SC (12:39)
--- NOTE | 2023-12-30 12:40 | PTCARENOTE ---
Pt. blood sugar prior to lunch 102. Dr. Vaughan messaged regarding 8 units Novolog ordered with lunch. Dr. Vaughan ordered to hold 8 units before lunch and ordered 4 units novolog to give. Will reassess blood sugar at dinner.
[2023-12-30] MEDS: NOVOLOG FLEXPEN 4 UNITS SC (12:50)
--- NOTE | 2023-12-30 14:33 | W.PN.HOSP.TC ---
Today's Communication/Plan
-
Needs home VN set up and available on the day of discharge before discharge
Assessment / Plan
Assessment / Plan
Physical Exam
General: Comfortable and Conversant
HEENT: Anicteric and Moist mucous membranes
Respiratory: Clear and Non Labored Respirations
Cardiac: S1/S2 and Regular Rhythm
GI: Soft and Non Tender. Positive bowel sounds.
Skin: Warm and Dry
Neuro: Awake, Alert, Oriented and Nonfocal/grossly intact
Assessment/Plan
Hyperglycemia secondary to malfunctioning continuous glucose monitoring - IMPROVED
-Not in DKA or HHS
-IV fluids
-Consulted Knuckle Bender for insulin recommendation: Lantus to 22 units @ HS and NovoLog to 8 units AC with low corrective insulin as well as 1800 ADA diet.
-Will need to prescribe insulin injections on discharge, she has glucose monitor and supplies at home
-Check HbgA1c
Hypokalemia
-Continue potassium replacement as needed
-Hold diuretics
-Recheck BMP in the AM
Hyponatremia - secondary to hyperglycemia
-Recheck morning labwork
Extensive bilateral foot fractures
-Was in [facility] for 2 weeks recently -- much of time was there waiting for the boots and insurance approval
-Official report on foot x-ray: Left Foot - Fractures of the base of the left first, second, third and fourth metatarsals; Right Foot - There are acute comminuted nondisplaced fractures of the proximal metaphyses of the third and fourth metatarsals,
fracture of the base of the second metatarsal and associated oblique fracture of the distal lateral aspect of the medial cuneiform with associated intra-articular extension at the tarsal metatarsal joints of the first and second digits.
-Will eventually need bilateral midfoot fusions when diabetes under better control
-May be WBAT in cam boots
-Consult PT/OT
-Follow-up with podiatry/surgery as outpatient
CKD Stage 4
-Patient confirmed that she has CKD stage 4 from Diabetes Mellitus
-Creatinine at baseline
-Diuretics currently on hold
-Monitor Is&Os and Daily Weigths
Essential Hypertension
-Continue losartan
Hyperlipidemia
-Continue rosuvastatin
Peripheral Neuropathy
-Continue gabapentin
Diabetic Gastroparesis
Severe retinopathy with visual impairment
Chronic Pancreatitis
History of Calcific Pancreatitis
-Continue Creon
Anxiety/Depression/Bipolar/PTSD
Recent Suicide Attempt
Numerous Psychiatric Admissions
Opiate Use Disorder
-Continue Seroquel and trazodone
-Psychiatry consulted, recommendations appreciated
-Add hydroxyzine 50mg q6 hours PRN anxiety
-Follow up will be with ACT team including prescriber after discharge.
DVT proph: SC Heparin
Code Status: Full Code
Anticipated Discharge: 24 - 48 hours
Subjective/Interval History
-
Date of Service: December 30, 2023
Patient was seen and examined. She denied any new significant symptoms or complaints.
Objective Data
-
Labs:
Laboratory Results
12/30/23
10:10
WBC 7.6
Hgb 9.6 L
Hct 28.9 L
Plt Count 369
Sodium 139
Potassium 3.8
Chloride 103
Carbon Dioxide 29
BUN 39 H
Creatinine 1.1 H
Glucose 196 H
Calcium 9.0
Vital Signs:
Vital Signs
Temp Pulse Resp BP Pulse Ox
97.6 F 78 16 117/75 98
12/30/23 11:10 12/30/23 11:10 12/30/23 11:10 12/30/23 11:10 12/30/23 11:10
I&O
12/29/23 12/30/23 12/31/23
06:59 06:59 06:59
Intake Total 240 / 240 1675 / 1675
Output Total 200 / 200
Balance 40 / 40 2755 / 1677
[2023-12-30 15:15] VITALS: BP 121/74
[2023-12-30 16:36] LABS: Glucose - Point of Care 317 mg/dl (70-99)
[2023-12-30] MEDS: NOVOLOG FLEXPEN-MODERATE RESISTANCE 7 UNITS SC (16:37)
[2023-12-30] MEDS: DESYREL 150 MG PO (18:00)
[2023-12-30] MEDS: CRESTOR 20 MG PO (18:00)
[2023-12-30] MEDS: SEROQUEL 25 MG PO (18:00)
[2023-12-30 19:20] VITALS: BP 109/61
[2023-12-30 21:29] LABS: Glucose - Point of Care 298 mg/dl (70-99)
[2023-12-30] MEDS: ATARAX 50 MG PO (22:33)
[2023-12-30] MEDS: NOVOLOG FLEXPEN 5 UNITS SC (22:38)
[2023-12-30 22:44] VITALS: BP 121/75
--- NOTE | 2023-12-30 23:15 | PTCARENOTE ---
Addendum entered by Kami Livingston 12/31/23 06:09:
pt continues to refuse pvc monitor throughout the night.
Original Note:
Patient removed pvc monitor- stating 'it is making me hot and i have the right to refuse'. Pt also removed IV- stating 'they can put a new one in the AM'. Pt educated, will continue to monitor.
--- NOTE | 2023-12-31 00:20 | PTCARENOTE ---
Pts HS blood sugar 298- House REHEATER notified per MD order. Order for 5 units novolog and 22 units lantus. Given per order. Blood sugar rechecked at 0020 253.
[2023-12-31 00:22] LABS: Glucose - Point of Care 253 mg/dl (70-99)
[2023-12-31 03:03] VITALS: BP 114/72
[2023-12-31 05:44] VITALS: BMI 29.5
[2023-12-31 07:15] VITALS: BP 112/76
[2023-12-31 07:19] LABS: Glucose - Point of Care 219 mg/dl (70-99)
[2023-12-31] MEDS: NOVOLOG FLEXPEN SC ×2 (09:03→12:18)
[2023-12-31] MEDS: MIRALAX 17 GRAMS PO (09:08)
[2023-12-31] MEDS: NICODERM TRANSDERMAL 21 MG TRANSDERM (09:08)
[2023-12-31] MEDS: NEURONTIN 100 MG PO ×3 (09:11→21:58)
[2023-12-31] MEDS: ZENPEP DELAYED RELEASE CAPSULE 1 CAPSULE PO ×3 (09:11→17:23)
[2023-12-31] MEDS: SENOKOT-S 1 TABLET PO ×2 (09:11→20:43)
[2023-12-31] MEDS: PROTONIX 40 MG PO ×2 (09:12→20:43)
[2023-12-31] MEDS: LANTUS 0.239999999999999991 UNITS SC ×2 (09:12→21:59)
[2023-12-31] MEDS: NOVOLOG FLEXPEN-MODERATE RESISTANCE 3 UNITS SC (09:13)
[2023-12-31] MEDS: NOVOLOG FLEXPEN 10 UNITS SC ×2 (09:13→17:29)
[2023-12-31 11:00] VITALS: BP 113/65
--- NOTE | 2023-12-31 11:25 | W.PN.UPDATE ---
Update Note
Progress Note Update
Psychiatry follow up for management recommendations given recent suicide attempt and extensive mental health history. Patient states she is feeling ok today. She states she received her nighttime psych meds at 6PM which helped her sleep. PRN
hydroxyzine is helping anxiety. Told her i spoke with ACT team prescriber who is agreeable to seeing her once she is discharged for medication management. I reminded her that appointments with him need to be made by calling F, not by texing or
calling his phone.
MSE- cooperative, lying in bed. euthymic mood. denies suicidal ideations. Denies HI/AVH. Poor I/J. fully oriented
Plan- continue current medications. follow up will be with ACT team including prescriber after discharge.
[2023-12-31 11:36] LABS: Glucose - Point of Care 73 mg/dl (70-99)
[2023-12-31] MEDS: NOVOLOG FLEXPEN-MODERATE RESISTANCE SC (12:03)
[2023-12-31] MEDS: TYLENOL 650 MG PO ×3 (12:20→21:57)
[2023-12-31] MEDS: NOVOLOG FLEXPEN 3 UNITS SC (12:41)
[2023-12-31 15:00] VITALS: BP 123/74
[2023-12-31 15:23] LABS: Glucose - Point of Care 312 mg/dl (70-99)
[2023-12-31] MEDS: NOVOLOG FLEXPEN-MODERATE RESISTANCE 7 UNITS SC (15:35)
[2023-12-31 16:29] LABS: Glucose - Point of Care 356 mg/dl (70-99)
--- NOTE | 2023-12-31 16:29 | CM ---
CM following re: d/c planning.
CM met with pt at bedside.
CM requested updated therapy notes, therapy assessed pt.
Recommendation for SNF at this time, as pt has 40+ steps to navigate with a boot.
She is WBAT.
Of note, per med team, no plans for foot surgery at this time due to elevated a1c.
CM discussed SNF with pt.
She believes this to be a dumb idea, she states.
CM explained she can be in a monitored environment to get her sugars controlled, proceed with surgery, and rehab afterwards.
She explained her sugars are normally controlled, and the problem is a sensor, which she is receiving a replacement.
Pt defensive throughout conversation and says several times, 'whatever, no one cares,' and also makes statements about how all recommendations are due to 'the doctors just want to get their commission from the insurance.'
CM provided emotional support and encouragement.
Pt seemingly plans to return to [employer], she states to be with her cat.
She plans to get her surgery at another hospital.
CM suggested she think about it tonight. Pt asked to return to her movie.
(If pt decides to proceed with SNF, she will need a level II assessment due to an intentional OD 1 month ago).
CM to follow up with pt tomorrow.
--- NOTE | 2023-12-31 16:46 | W.PN.HOSP.TC ---
Today's Communication/Plan
-
Orthopedics will not do surgery until patient's A1c is improved -- currently too high for surgery
Patient will likely need home VN to help her with accuchecks and Insulin administration while working on getting new continuous glucose monitor vs. SNF placement
Discharge planning
Assessment / Plan
Assessment / Plan
Physical Exam
General: Comfortable and Conversant
HEENT: Anicteric and Moist mucous membranes
Respiratory: Clear and Non Labored Respirations
Cardiac: S1/S2 and Regular Rhythm
GI: Soft and Non Tender. Positive bowel sounds.
Skin: Warm and Dry
Neuro: Awake, Alert, Oriented and Nonfocal/grossly intact
Assessment/Plan
Hyperglycemia secondary to malfunctioning continuous glucose monitoring - IMPROVED
-Was not in DKA or HHS
-IV fluids
-Consulted Cyber Analyst for insulin recommendation: Lantus and premeal NovoLog being adjusted
-Will need to prescribe insulin injections on discharge, she has glucose monitor and supplies at home
-HbgA1c 11.5%
Hypokalemia
-Continue potassium replacement as needed
-Hold diuretics -- bu re-evaluate for resuming soon
-Recheck BMP in the AM
Hyponatremia - secondary to hyperglycemia
-Recheck morning labwork
Extensive bilateral foot fractures
-Was in [facility] for 2 weeks recently -- much of time was there waiting for the boots and insurance approval
-Official report on foot x-ray: Left Foot - Fractures of the base of the left first, second, third and fourth metatarsals; Right Foot - There are acute comminuted nondisplaced fractures of the proximal metaphyses of the third and fourth metatarsals,
fracture of the base of the second metatarsal and associated oblique fracture of the distal lateral aspect of the medial cuneiform with associated intra-articular extension at the tarsal metatarsal joints of the first and second digits.
-Will eventually need bilateral midfoot fusions when diabetes under better control (better A1c in ~2 months hopefully)
-May be WBAT in cam boots
-Consult PT/OT
-Follow-up with podiatry/surgery as outpatient
CKD Stage 4
-Patient confirmed that she has CKD stage 4 from Diabetes Mellitus
-Creatinine at baseline
-Diuretics currently on hold
-Monitor Is&Os and Daily Weigths
Essential Hypertension
-Continue losartan
Hyperlipidemia
-Continue rosuvastatin
Peripheral Neuropathy
-Continue gabapentin
Diabetic Gastroparesis
Severe retinopathy with visual impairment
Chronic Pancreatitis
History of Calcific Pancreatitis
-Continue Creon
Anxiety/Depression/Bipolar/PTSD
Recent Suicide Attempt
Numerous Psychiatric Admissions
Opiate Use Disorder
-Continue Seroquel and trazodone
-Psychiatry consulted, recommendations appreciated
-Add hydroxyzine 50mg q6 hours PRN anxiety
-Follow up will be with [facility] team including prescriber after discharge.
DVT proph: SC Heparin
Code Status: Full Code
Anticipated Discharge: 24 - 48 hours
Subjective/Interval History
-
Date of Service: December 31, 2023
Patient was seen and examined. She denied any new symptoms or complaints.
Objective Data
-
Vital Signs:
Vital Signs
Temp Pulse Resp BP Pulse Ox
98.6 F 77 16 123/74 98
12/31/23 15:00 12/31/23 15:00 12/31/23 15:00 12/31/23 15:00 12/31/23 15:00
I&O
12/30/23 12/31/23 01/01/24
06:59 06:59 06:59
Intake Total 1675 / 1675 2820 / 2820
Balance 1675 / 1675 2820 / 2820
[2023-12-31] MEDS: CRESTOR 20 MG PO (17:23)
[2023-12-31] MEDS: SEROQUEL 25 MG PO (17:23)
[2023-12-31] MEDS: DESYREL 150 MG PO (17:24)
[2023-12-31 19:16] LABS: Glucose - Point of Care 184 mg/dl (70-99)
[2023-12-31 20:09] LABS: Blood Urea Nitrogen 31 mg/dl (7-17); Calcium 8.9 mg/dl (8.4-10.2); Carbon Dioxide 26 mmol/L (22-30); Chloride 109 mmol/L (98-107); Estimated Creatinine Clearance 54 ml/min; Glucose 171 mg/dl (70-99); Potassium 5.1 mmol/L (3.5-5.1); Sodium 142 mmol/L (135-145); eGFR 51.26
[2023-12-31 21:16] LABS: Glucose - Point of Care 258 mg/dl (70-99)
[2023-12-31] MEDS: MELATONIN 5 MG PO (22:00)
[2023-12-31 23:32] VITALS: BP 110/66
[2024-01-01 06:46] LABS: Glucose - Point of Care 188 mg/dl (70-99)
[2024-01-01 07:15] VITALS: BP 120/75
--- NOTE | 2024-01-01 07:48 | PN.DE.MGMTRT ---
Insulin Management
- -
01/01/2024: Diabetes Management F/U:
33 year old female admitted with Hyperglycemia. Glucose on admission was 563, Pt reports having sx of fatigue, N/V. PMH:- Anxiety, Bipolar, legally blind, HTN, CKD, Substance abuse disorder, Gastroparesis and T1DM. Pt is well know to me from prior
admissions for DKA.
Pt reports that she was transitioned to insulin pump from insulin injections in Aug 2023 and has been doing well until about a week ago when her CGM sensor started malfunctioning and not communicating with her Omni Pod insulin pump, therefore not
getting the appropriate dose of insulin. She tried using Lantus at onset of her sx but had no improvement. States she contacted her pharmacy to obtain another Sensor but was told that it was too soon to refill. She continues to report that she is
legally blind in the right eye due to a detached retina as a result of severe proliferative retinopathy.
States that she does not know the exact details of her insulin pump settings but recalls that her insulin requirements prior to getting on the insulin pump were NovoLog 6 units AC with 22 units Lantus @ HS. She routinely sees Endo Dr. River at [facility].
Glucose on admission was 563 (V), was started on SQ insulin. A1C 11.5%, was 10.4 last year. Cr 1.4, eGFR 51.26
Pt awake, alert, oriented, sitting up at edge of bed, offers no complaints and is able to discuss diabetes mgt.
Premeal glucose remained elevated and AC NovoLog was increased to 8 units and Lantus to 24 units BID over the weekend.
Glucose remains relatively uncontrolled, premeal 73 to 356, requiring 1 to 7 units of corrective insulin with meals
FBG 184 this AM. Will increase Lantus to 26 units BID and NovoLog to 12 units AC with low corrective insulin.
Change diet to 1800 billy.
Pt was assisted in calling [employer] to request for new sensor. Spoke to [employer] and 2 new sensors are being overnight shipped to pt's house in [place].
Pt will temporarily use insulin injections via pen for management while she awaits for a new sensor to arrive tomorrow
States she is able to use insulin pens but has difficulty with glucose monitoring and that her boyfriend helps her to check it most of the time.
Pt can be discharged home on insulin injections, she is comfortable with self administration of insulin using pens and has a glucose monitor with supplies at home
Pt will resume Omnipod use tomorrow when new sensor arrives.
Diabetes plan of care discussed with pt, Nurse and Hospitalist.
Diabetes History
- -
Type of Diabetes: 1
Pre-Admission Diabetes Regimen
12/31/23
19:39
Creatinine 1.4 H
Lab Results
Hemoglobin A1c 11.5 % (4.0-5.6) H 12/28/23 11:52
Insulin Pump Settings
IP Diabetes Regimen
12/31/23 12/31/23 12/31/23
11:33 15:21 16:28
Glucose
POC Glucose 73 312 H 356 H
12/31/23 12/31/23 12/31/23
19:14 19:39 21:14
Glucose 171 H
POC Glucose 184 H 258 H
01/01/24
06:44
Glucose
POC Glucose 188 H
Meal type: Dinner
Meal type: Lunch
Amount consumed: 100%
Amount consumed: 100%
Patient Education
[2024-01-01 07:56] LABS: Hematocrit 28.9 % (37.0-47.0); Hemoglobin 9.2 g/dL (12.0-16.0); Mean Corp Hgb Conc. 31.8 g/dL (33.0-37.0); Mean Corpuscular Hgb 29.1 pg (27.0-31.0); Mean Corpuscular Volume 91.5 fL (81.0-99.0); Mean Platelet Volume 10.9 fL (7.4-10.4); Platelet Count 356 10^3/uL (130-400); Red Blood Cell Count 3.16 10^6/uL (4.20-5.40); Red Cell Dist. Width 14.6 % (11.5-14.5); White Blood Cell Count 11.1 10^3/uL (4.8-10.8)
[2024-01-01] MEDS: NICODERM TRANSDERMAL 21 MG TRANSDERM (07:56)
[2024-01-01] MEDS: NOVOLOG FLEXPEN 10 UNITS SC ×2 (08:00→13:33)
[2024-01-01] MEDS: NOVOLOG FLEXPEN-MODERATE RESISTANCE 1 UNITS SC (08:00)
[2024-01-01] MEDS: PROTONIX 40 MG PO (08:01)
[2024-01-01] MEDS: SENOKOT-S 1 TABLET PO (08:01)
[2024-01-01] MEDS: TYLENOL 650 MG PO (08:01)
[2024-01-01] MEDS: NEURONTIN 100 MG PO ×2 (08:02→17:07)
[2024-01-01] MEDS: LANTUS 0.239999999999999991 UNITS SC (08:02)
[2024-01-01] MEDS: MIRALAX 17 GRAMS PO (08:02)
[2024-01-01] MEDS: ZENPEP DELAYED RELEASE CAPSULE 1 CAPSULE PO ×3 (08:07→17:06)
[2024-01-01 08:31] LABS: Blood Urea Nitrogen 29 mg/dl (7-17); Calcium 9.2 mg/dl (8.4-10.2); Carbon Dioxide 25 mmol/L (22-30); Chloride 111 mmol/L (98-107); Estimated Creatinine Clearance 63 ml/min; Glucose 184 mg/dl (70-99); Sodium 142 mmol/L (135-145); eGFR > 60.00
[2024-01-01 11:12] LABS: Glucose - Point of Care 73 mg/dl (70-99)
[2024-01-01] MEDS: NOVOLOG FLEXPEN-MODERATE RESISTANCE SC ×2 (11:38→16:59)
--- NOTE | 2024-01-01 12:23 | W.PN.HOSP.TC ---
Addendum entered and electronically signed by Pan Neal DO 01/01/24 18:02:
As already documented, this is SARAH on CKD 3A.
Asymptomatic bacteriuria
Addendum entered and electronically signed by Pan Neal DO 01/01/24 14:58:
Bilateral foot fractures presumably traumatic.
Original Note:
Today's Communication/Plan
-
Set up home CGM
Discharge planning
Assessment / Plan
Assessment / Plan
Gen-AAOx3, NAD
HEENT-NC, AT, anicteric, clear oral mm
Neck-supple
CV-reg, no M, +S1/S2
Lungs-clear B/L
Abd-soft, NT, ND
Ext-no edema
Musculoskeletal-no cyanosis, clubbing
Skin-warm and dry
Neuro-grossly non-focal
Psych-calm, cooperative
DM1 with hyperglycemia - Hyperglycemia secondary to malfunctioning continuous glucose monitoring - IMPROVED
-Was not in DKA or HHS
-IV fluids
-Consulted Health Actuary for insulin recommendation: Lantus and premeal NovoLog being adjusted. Diabetes MANAGER PEDIATRIC to assist in obtaining new CGM today.
-HbgA1c 11.5%
Hypokalemia - resolved.
Hyponatremia - secondary to hyperglycemia. Resolved.
Extensive bilateral foot fractures
-Was in [facility] for 2 weeks recently -- much of time was there waiting for the boots and insurance approval
-Official report on foot x-ray: Left Foot - Fractures of the base of the left first, second, third and fourth metatarsals; Right Foot - There are acute comminuted nondisplaced fractures of the proximal metaphyses of the third and fourth metatarsals,
fracture of the base of the second metatarsal and associated oblique fracture of the distal lateral aspect of the medial cuneiform with associated intra-articular extension at the tarsal metatarsal joints of the first and second digits.
-Will eventually need bilateral midfoot fusions when diabetes under better control (better A1c in ~2 months hopefully)
-May be WBAT in cam boots
-Consult PT/OT
-Follow-up with podiatry/surgery as outpatient
SARAH on CKD 3A -SARAH resolved. Losartan on hold.
Essential Hypertension -stable.
Hyperlipidemia -Continue rosuvastatin
Peripheral Neuropathy -Continue gabapentin
Diabetic Gastroparesis
Severe retinopathy with visual impairment
Chronic Pancreatitis
History of Calcific Pancreatitis
-Continue Creon
Anxiety/Depression/Bipolar/PTSD
Recent Suicide Attempt
Numerous Psychiatric Admissions
Opiate Use Disorder
-Continue Seroquel and trazodone
-Psychiatry consulted, recommendations appreciated
-Add hydroxyzine 50mg q6 hours PRN anxiety
-Follow up will be with [facility] team including prescriber after discharge.
Full code
Dispo -medically stable for discharge once continuous glucose monitor set up. Insulin pump is working. Discussed with diabetes education. Diabetes MANAGER PEDIATRIC to assist patient today with ordering new CGM monitor to be sent overnight to her home.
Anticipated Discharge: Today
Subjective/Interval History
-
Date of Service: January 01, 2024
Patient seen/examined. No complaints.
Objective Data
-
Labs:
Laboratory Results
01/01/24
07:14
WBC 11.1 H
Hgb 9.2 L
Hct 28.9 L
Plt Count 356
Sodium 142
Potassium 5.0
Chloride 111 H
Carbon Dioxide 25
BUN 29 H
Creatinine 1.2 H
Glucose 184 H
Calcium 9.2
Vital Signs:
Vital Signs
Temp Pulse Resp BP Pulse Ox
98.5 F 74 18 120/75 98
01/01/24 07:15 01/01/24 07:15 01/01/24 07:15 01/01/24 07:15 01/01/24 07:15
I&O
12/31/23 01/01/24 01/02/24
06:59 06:59 06:59
Intake Total 2820 / 2820 1200 / 1200 474 / 474
Balance 2820 / 2820 1200 / 1200 474 / 474
Review of Systems
-
History Source: Patient
All other systems: Reviewed and negative
[2024-01-01 13:13] LABS: Glucose - Point of Care 121 mg/dl (70-99)
[2024-01-01] MEDS: ATARAX 50 MG PO (13:13)
--- NOTE | 2024-01-01 14:03 | W.DS.TRANS ---
DC Summary - Cardiac Monitor
-
Discharge Instructions:
Discharge Diagnosis/Procedures Elevated glucose
Diet Diabetic, Carb Controlled
Activity Other activity
Additional Activity weight bearing only with camboots on both legs
Driving Restrictions No driving
Bathing Restrictions None
Instructions:
Stand-Alone Forms:
Changes to Home Medications: No
Discharge Medications:
DC Medications w/original date entered in [employer]
losartan 100 mg tablet 100 mg PO DAILY Blood Pressure 05/21/23
rosuvastatin 20 mg tablet 20 mg PO QPM High Cholesterol 05/21/23
Patient's Own Insulin Pump 0 sliding scale dose SC .CONTINUOUS Diabetes 12/28/23
atropine 1 % eye drops 2 drp RIGHT EYE DAILYPRN PRN dryness 12/28/23
bumetanide 2 mg tablet 2 mg PO BID Fluid retention/Swelling 12/28/23
cyanocobalamin (vitamin B-12) 1,000 mcg tablet 1,000 mcg PO DAILY Supplement 12/28/23
gabapentin 100 mg capsule 100 mg PO TID Neurological Condition 12/28/23
insulin glargine 100 unit/mL (3 mL) subcutaneous pen (Lantus Solostar U-100 Insulin) 9 unit SC TIDPRN PRN diabetes 12/28/23
oyngbt-niipclod-smafyti 36,000-114,000-180,000 unit capsule,delay rel (Creon) 1 cap PO AC Gastrointestinal Issue 12/28/23
metolazone 5 mg tablet 5 mg PO TUTH Fluid Retention/Swelling 12/28/23
omeprazole 40 mg capsule,delayed release 40 mg PO BID Gastrointestinal Issue 12/28/23
polyethylene glycol 400 0.25 % eye drops (Blink Tears) 1 drp ophthalmic (eye) QID Constipation 12/28/23
prednisolone acetate 1 % eye drops,suspension 1 drp RIGHT EYE DAILYPRN PRN inflammation 12/28/23
quetiapine 25 mg tablet 25 mg PO QPM Mental Health/Anxiety 12/28/23
trazodone 50 mg tablet 150 mg PO QPM Mental Health/Anxiety 12/28/23
Home Medication Changes
Pending Results: No
--- NOTE | 2024-01-01 14:46 | PN.CDI ---
CDI
- -
CDI:
Physician Documentation Request
Admit Date: 12/28/23 15:20
Dear Doctor Val,
Patient is admitted with DM1 with hyperglycemia.
Pt notes also to have extensive bilateral foot fractures.
Please provide further specificity regarding the diagnosis of fracture:
Etiology
Traumatic
Pathologic due to other disease (please specify)
Due to a combination of trauma and a pathological process
but the trauma alone would not likely have been sufficient
to cause the fracture
Use of terms such as suspected, likely, concern for, or probable (associated with a specific diagnosis that is being evaluated, monitored, or treated as if it exists) are acceptable and can be coded in the inpatient setting, when documented at the
time of discharge.
Thank you,
Ellyn Gutierrez RN, BSN
CDI Specialist
tiger text
Please use your independent medical judgment in providing your response.
--- NOTE | 2024-01-01 14:48 | CM ---
TANVIR met with Ani to discuss discharge plans. She understands that she does not need to go to SNF. She is living with her boyfriend at [facility], a hotel in [place]. She receives services from [facility] who will send someone out
tomorrow to ensure she has what she needs.
Referral to [facility] for home health follow up
Call placed to [facility] kiln car unloader; spoke with Ana who was familiar with Ani. Transportation services are not something [facility] can provide, as they feel it is a liability.
Previously another kiln car unloader had advised that transportation was available during the week; Ana contacted her maternity floor supervisor, Pop who agreed that they were not able to provide transportation.
Referral to [facility] for home health follow up; this is being reviewed to determine if they service the area where Ani lives.
CM will seek other transportation resources to get Ani home.
Please fax clinical to [facility] FAX [phone]
--- NOTE | 2024-01-01 14:55 | PN.CDI ---
CDI
- -
CDI:
Physician Documentation Request
Admit Date: 12/28/23 15:20
Dear Doctor Val,
Patient admitted with DM1 with hyperglycemia
Urine culture positive for Enterococcus faecalis.
UA results:
Laboratory Tests
12/28/23
21:57
Urine Color Yellow
Urine Clarity Clear
Ur Occult Blood Reflex 4+ A
Leukocyte Esterase Rfl Trace A
Urine WBC (Reflex) 16-20 A
Urine Bacteria (Reflex) Many A
Based on the above, could you provide a diagnosis that supports the lab above abnormalities and additional evaluation/ monitoring:
Urinary tract infection
Asymptomatic bacteruria
Other
Use of terms such as suspected, likely, concern for, or probable (associated with a specific diagnosis that is being evaluated, monitored, or treated as if it exists) are acceptable and can be coded in the inpatient setting, when documented at the
time of discharge.
Thank you,
Ellyn Gutierrez RN, BSN
CDI Specialist
tiger text
Please use your independent medical judgment in providing your response.
--- NOTE | 2024-01-01 14:59 | PN.CDI ---
CDI
- -
CDI:
Physician Documentation Request
Admit Date: 12/28/23 15:20
Dear Doctor Val,
12/30 hospitalist progress note states 'Patient confirmed that she has CKD stage 4 from Diabetes Mellitus
12/31 progress note states 'SARAH on CKD 3a'
In an attempt to clarify potentially conflicting documentation, which of the following accurately represents the patient's renal status:
____ - CKD 4
____ - CKD 3a
____ - Other
Stages of Chronic Kidney Disease*
Level Description GFR
G1 Normal or High >90
G2 Mildly decreased 60-89
G3a Mildly to moderately decreased 45-59
G3b Moderately to severely decreased 30-44
G4 Severely decreased 15-29
G5 Kidney failure <15
Use of terms such as suspected, likely, concern for, or probable (associated with a specific diagnosis that is being evaluated, monitored, or treated as if it exists) are acceptable and can be coded in the inpatient setting, when documented at the
time of discharge.
Thank you,
Ellyn Gutierrez RN, BSN
CDI Specialist
tiger text
Please use your independent medical judgment in providing your response.
*Source: Kidney Disease: Improving Global Outcomes (KDIGO) 2012
[2024-01-01 15:47] VITALS: BP 133/96
[2024-01-01 15:59] LABS: Glucose - Point of Care 51 mg/dl (70-99)
--- NOTE | 2024-01-01 16:05 | VNURNOTE ---
Home Health Liaison met with patient at 1545 to discuss [facility] nurse/therapy, visits, schedule and homebound status. Patient is agreeable and understands that visits at home will be 2-3 x per week to assess and teach medical management.
[facility] brochure provided with contact information. Patient is aware that [facility] will contact her for start of care in 1-2 days after discharge from .
[facility] referral completed in [facility].
[2024-01-01 16:10] LABS: Glucose - Point of Care 77 mg/dl (70-99)
[2024-01-01] MEDS: NOVOLOG FLEXPEN SC (16:38)
--- NOTE | 2024-01-01 16:50 | CM ---
Lyft ride to [facility] arranged for 5:40 mushroom picker in the main lobby. Traffic Control Flagger may arrive between 5:40-5:55pm.
[2024-01-01] MEDS: DESYREL 150 MG PO (17:05)
[2024-01-01] MEDS: CRESTOR 20 MG PO (17:07)
[2024-01-01] MEDS: SEROQUEL 25 MG PO (17:07)
== END 2024-01-01 17:55 | disposition home health service (06) | DRG 638 ==
LOC: 4 EAST ACU 15:20
PROVIDERS: Physician Assistant; Physician Assistant Medical; ADMITTING PHYSICIAN Hospitalist; ATTENDING PHYSICIAN Hospitalist; EMERGENCY PHYSICIAN Emergency Medicine; FAMILY PHYSICIAN Family Medicine; OTHER PHYSICIAN Psychiatry & Neurology Psychiatry; OTHER PHYSICIAN Student in an Organized Health Care Education/Training Program
DX: E10.65 Type 1 diabetes mellitus with hyperglycemia (principal); K86.1 Other chronic pancreatitis; N17.9 Acute kidney failure, unspecified; E10.22 Type 1 diabetes mellitus with diabetic chronic kidney disease; E10.42 Type 1 diabetes mellitus with diabetic polyneuropathy; E10.43 Type 1 diabetes mellitus with diabetic autonomic (poly)neuropathy; I12.9 Hypertensive chronic kidney disease with stage 1 through stage 4 chronic kidney disease, or unspecified chronic kidney disease; F31.9 Bipolar disorder, unspecified; N18.31 Chronic kidney disease, stage 3a; K31.84 Gastroparesis; F41.9 Anxiety disorder, unspecified; F43.10 Post-traumatic stress disorder, unspecified; E87.6 Hypokalemia; E78.5 Hyperlipidemia, unspecified; H54.8 Legal blindness, as defined in USA; S92.312A Displaced fracture of first metatarsal bone, left foot, initial encounter for closed fracture; S92.322A Displaced fracture of second metatarsal bone, left foot, initial encounter for closed fracture; S92.332A Displaced fracture of third metatarsal bone, left foot, initial encounter for closed fracture; S92.342A Displaced fracture of fourth metatarsal bone, left foot, initial encounter for closed fracture; S92.321A Displaced fracture of second metatarsal bone, right foot, initial encounter for closed fracture; S92.334A Nondisplaced fracture of third metatarsal bone, right foot, initial encounter for closed fracture; S92.344A Nondisplaced fracture of fourth metatarsal bone, right foot, initial encounter for closed fracture; W19.XXXA Unspecified fall, initial encounter; Z96.49 Presence of other endocrine implants; R82.71 Bacteriuria; Z96.41 Presence of insulin pump (external) (internal); Z79.899 Other long term (current) drug therapy; Z83.3 Family history of diabetes mellitus; Z82.49 Family history of ischemic heart disease and other diseases of the circulatory system
CPT/HCPCS: 73630; 80048; 80053; 81003; 81015; 82010; 82962; 83036; 83735; 85025; 85027; 87077; 87086; 87147; 87186; 96361; 96374; 97116; 97163; 97167; 97530; 97535; 99285; 99406